=== PATIENT | female | born 1975 | race Two or more races ===

== ENCOUNTER 2017-02-15 11:41 | Emergency (ER) | payer OTHER ==
--- NOTE | 2017-02-15 11:50 | EDPHY ---
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 She was removing a metal band from the patient's tooth which resulted in a superficial laceration to her left index finger. The patient was wearing a glove. The patient reportedly has a low viral load by her report after receiving treatment for hepatitis-C over the past 2 years. Source patient had no history of HIV or other significant comorbidities. The patient reports that she is currently vaccinated for hepatitis-B and had a normal titer obtained within the past year. REVIEW OF SYSTEMS: Neuro: no headache, numbness, weakness Musculoskeletal: as above Skin: As above Source: Patient Exam Limitations: No limitations - Medical/Surgical History Hx Asthma: No Hx Chronic Respiratory Disease: No Hx Diabetes: No Hx Cardiac Disease: No Hx Renal Disease: No Hx Cirrhosis: No Hx Alcoholism: No Hx HIV/AIDS: No Hx Splenectomy or Spleen Trauma: No Other PMH: gall bladder 2005 - Social History Smoking Status: Current every day smoker - Physical Exam Exam: General Appearance: Alert, no distress Skin: Very superficial laceration involving the superficial dermal layers of the left index finger, no active bleeding, does not appear to extend into subcutaneous tissue on my examination Musculoskeletal: Neck is supple nontender Extremities: symmetrical, full range of motion Psychiatric: Patient is oriented X 3, there is no agitation Constitutional: Initial Vital Signs Temperature (C) 36.9 C 02/15/17 11:51 Heart Rate 76 02/15/17 11:51 Respiratory Rate 18 02/15/17 11:51 Blood Pressure 116/77 02/15/17 11:51 O2 Sat (%) 95 02/15/17 11:51 O2 Delivery Mode Room Air Allergies/Adverse Reactions: Sulfa (Sulfonamide Antibiotics) Allergy (Verified 02/15/17 11:55) Home Medications: Medication Instructions Recorded NK [No Known Home Meds] 02/24/16 Medical Decision Making ED Course/Re-evaluation: Patient has been evaluated. Her tetanus shot is up-to-date. She is currently vaccinated against hepatitis-B. The source patient was HIV negative by her report. The source patient was hepatitis-C positive with a reported low viral load. This represents a low risk exposure given the findings on her physical examination. The patient did have baseline laboratory studies performed. She will be advised to follow up with our [facility] or her [facility] provider for further testing. Departure - Departure Disposition: Home, Routine, Self-Care Clinical Impression: Exposure to blood or body fluid Condition: Good Instructions: Abrasion (ED) Additional Instructions: 1. Based upon your examination today, no additional prophylaxis is indicated. 2. Baseline laboratory studies and HIV test have been ordered. 3. I recommend following up with your [facility] provider or the Infectious Disease physician you have been referred to for a recheck within the next month. Serial blood testing will be required to ensure that you continue to be HIV and hepatitis negative. 4. You have been given the contact number of our Infect[facility] Clinic if you wish to follow up with them. Please contact them or [facility] within the next week to schedule an appointment for the next month. Referrals: [facility] [Other] - As per Instructions Apolinar Farooq MD [Medical Doctor] - As per Instructions
[2017-02-15 11:55] VITALS: TEMP 98.4; O2SAT 95
[2017-02-15 13:12] VITALS: BP 110/72; PULSE 75; RESP 16
== END 2017-02-15 12:54 | disposition home or self-care (01) ==
LOC: CED 11:41
DX: Z77.21 Contact with and (suspected) exposure to potentially hazardous body fluids (principal); F17.200 Nicotine dependence, unspecified, uncomplicated
CPT/HCPCS: G0472